=== PATIENT | male | born 1985 | race Caucasian/White ===

== ENCOUNTER 2017-07-28 02:51 | Inpatient (IN) ==
[2017-07-28 04:26] LABS: Basophils % 0.2 %; Eosinophils # 0.1 K/mcL (0.0-0.6); Eosinophils % 0.7 %; Hematocrit 39.4 % (37.5-50.1); Hemoglobin 13.7 g/dL (12.9-16.9); Immature Granulocytes % 0.4 % (0-4); Lymphocytes % 14.3 %; Mean Corpuscular HGB Conc 34.8 g/dL (31.6-35.5); Mean Corpuscular Hemoglobin 29.7 pg (28.0-33.3); Mean Corpuscular Volume 85.3 fL (83.0-100.0); Mean Platelet Volume 11.9 fL (9.4-12.4); Monocytes # 0.9 K/mcL (0.0-1.3); Monocytes % 6.6 %; Platelet Count 174 K/mcL (140-400); Red Blood Count 4.62 M/mcL (4.19-5.50); Red Cell Distribution Width 12.1 % (11.5-14.5); Segmented Neutrophils % 77.8 %
[2017-07-28 04:34] LABS: VBG HCO3 28 mEq/L (21-27); VBG PCO2 44 mmHg (41-51); VBG PH 7.41 pH Units (7.32-7.42); VBG PO2 98 mmHg (25-50)
--- NOTE | 2017-07-28 04:38 | Emergency Department Note ---
Disposition Clinical Impression: Abscess of skin or subcutaneous tissue Qualifiers: Site of cutaneous abscess: extremity Site of cutaneous abscess of extremity: upper extremity Laterality: right Qualified Code(s): L02.413 - Cutaneous abscess of right upper limb Cellulitis Qualifiers: Site of cellulitis: extremity Site of cellulitis of extremity: upper extremity Laterality: right Qualified Code(s): L03.113 - Cellulitis of right upper limb Disposition: Admitted As Inpatient Condition: Good Referrals: NONE,PCP [Primary Care Provider] - Forms: ED Satisfaction Letter Skin/Abscess/FB HPI Chief complaint: ED Skin/Abscess/Foreign Body Stated complaint: "I think I got a staph infection" Time Seen by Provider: 07/28/17 03:40 Source: patient Mode of arrival: private vehicle Limitations: no limitations Nursing Notes Reviewed: Yes Vital Signs Reviewed: Yes HPI Narrative: 31-year-old male history of IVDU with methamphetamines, type 1 diabetes who presents to the ER due to right upper extremity swelling and redness. Patient reports he last injected into his arm yesterday. States today it was warm and swollen. No fevers nausea vomiting or diarrhea at home. He does report they broke out into a sweat. He is noted to be diaphoretic here. Reports his tetanus was one year ago. Does endorse IVDU as of yesterday with meth. No other complaints. Pt Subjective Complaint: abscess/boil Onset (ago): day(s) Tetanus Up to Date: yes Location: RUE Severity: moderate Improves with: none Worsens with: none Context: IVDA Associated symptoms: Reports: chills. Denies: fever, nausea, vomiting Treatments prior to arrival: none Home Medications Medication Instructions Recorded Confirmed Insulin ASPART [Novolog] 15 unit SQ TIDWM 05/08/16 05/20/16 Insulin Glargine [Lantus] 30 unit SQ BID 05/08/16 05/20/16 Previous Rx's Medication Instructions Recorded Acetaminophen [Tylenol] 650 mg PO Q6HR PRN #60 tablet 05/14/16 Gabapentin [Neurontin] 800 mg PO Q8H #90 05/14/16 Clindamycin [Cleocin] 300 mg PO Q6HR 7 Days capsule 05/29/16 Clotrimazole/Betameth Dip CRM 1 appl TP BID #1 tube 05/29/16 [Lotrisone CRM] Escitalopram [Lexapro] 10 mg PO DAILY #30 tablet 05/29/16 Nicotine Patch [Nicoderm] 21 mg TD HS #14 patch.[id number] 05/29/16 OxyCODONE Immed Rel [Roxicodone 5 10 mg PO Q8HR PRN #90 tablet 05/29/16 MG] levoFLOXacin [Levaquin] 500 mg PO DAILY 7 Days tablet 05/29/16 Allergies Allergy/AdvReac Type Severity Reaction Status Date / Time tramadol AdvReac Vomiting Verified 05/20/16 16:51 All systems ED: reviewed and negative except as stated. Constitutional: Reports: chills. Denies: fever Gastrointestinal: Denies: nausea, vomiting, diarrhea Integumentary: Reports: lesions Past Medical History - Past Medical History Attestation: Yes The following information was validated with the patient. Source: patient Medical history: Reports: diabetes, other Surgical history: Reports: non-contributory Psychiatric history: Reports: anxiety - Social History Smoking Status: Current every day smoker Smokeless Tobacco Status: No Alcohol use: Reports: none Drug use: Reports: opiates, marijuana, IV Drug Use Physical Exam - General Limitations: no limitations General appearance: alert, in no apparent distress - Head Head exam: atraumatic - Eye Eye exam: Present: normal appearance - ENT ENT exam: normal exam - Neck Neck exam: Present: normal inspection - Chest Chest inspection: Present: normal inspection, symmetric chest wall rise - Respiratory Respiratory exam: Present: normal lung sounds bilaterally - Cardiovascular Cardiovascular exam: Present: regular rate, normal rhythm, normal heart sounds - Abdominal Exam Abdominal exam: Present: soft, Non-Tender. Absent: tenderness - Extremities Exam Extremities exam: Present: normal inspection, full ROM - Expanded Upper Extremity Exam Shoulder exam: Present: full ROM Arm exam: Present: full ROM, swelling (There is significant swelling noted to the right upper extremity within area of fluctuance just distal to the medial aspect of the right elbow. There is overlying erythema from the wrist up to the medial upper arm.) Elbow exam: Present: full ROM Forearm/Wrist exam: Present: full ROM Hand exam: Present: full ROM - Expanded Lower Extremity Exam Hip/Pelvis exam: Present: normal inspection, full ROM Upper leg exam: Present: normal inspection, full ROM Knee exam: Present: normal inspection, full ROM Lower leg exam: Present: normal inspection, full ROM Ankle exam: Present: normal inspection, full ROM Foot/toe exam: Present: normal inspection, full ROM Neurovascular/Tendon exam: Absent: motor deficit, sensory deficit - Neurological Exam Neurological exam: Present: alert - Psychiatric Psychiatric exam: Present: anxious - Skin Skin exam: Present: warm, dry, intact Course Course Narrative: Patient seen and examined. We will obtain a CT scan of his right arm as well as labs. Vital Signs Temperature 98.1 F 07/28/17 02:53 Pulse Rate 105 07/28/17 02:53 Respiratory Rate 16 07/28/17 02:53 Blood Pressure 170/102 07/28/17 02:53 O2 Sat by Pulse Oximetry 98 07/28/17 02:53 Temperature 98.1 F 07/28/17 02:53 Pulse Rate 105 07/28/17 02:53 Respiratory Rate 16 07/28/17 02:53 Blood Pressure 170/102 07/28/17 02:53 O2 Sat by Pulse Oximetry 98 07/28/17 02:53 Oxygen Delivery Oxygen Delivery Room Air Procedures - Abscess I/D Consent obtained: verbal consent Site: upper extremity Side (if applicable): right Local Anesthetic: lidocaine 1% Amount of Anesthesia Used (mL): 5 Technique: incised with #11 blade Amount of fluid: 40 Packing used?: iodoform Skin/Abscess/Foreign Body - MDM Narrative Medical decision making narrative: 31-year-old male presents to the ER due to abscess and cellulitis to his right upper extremity. History of IV drug use. Injected yesterday with methamphetamine. Reports swelling since yesterday as well as redness. No fevers nausea vomiting or diarrhea. He is noted to be hyperglycemic here and a poorly controlled type I diabetic. CT scan demonstrates a large abscess just distal to his right elbow with overlying cellulitis. Incision and drainage performed in the emergency department. Patient given vancomycin after cultures obtained. Admitted to the hospitalist service. - Lab Data Lab results reviewed: Yes I reviewed the patient's lab results. Result diagrams: 07/28/17 04:16 07/28/17 04:16 Lab Results 07/28/17 07/28/17 07/28/17 Range/Units 03:22 03:23 04:16 WBC 14.2 H (4.3-11.1) K/mcL RBC 4.62 (4.19-5.50) M/mcL Hgb 13.7 (12.9-16.9) g/dL Hct 39.4 (37.5-50.1) % MCV 85.3 (83.0-100.0) fL MCH 29.7 (28.0-33.3) pg MCHC 34.8 (31.6-35.5) g/dL RDW 12.1 (11.5-14.5) % Plt Count 174 (140-400) K/mcL MPV 11.9 (9.4-12.4) fL Immature Gran % 0.4 (0-4) % Seg Neutrophils % 77.8 % Lymphocytes % 14.3 % Monocytes % 6.6 % Eosinophils % 0.7 % Basophils % 0.2 % Neutrophils # 11.0 H (1.6-8.9) K/mcL Lymphocytes # 2.0 (0.6-4.6) K/mcL Monocytes # 0.9 (0.0-1.3) K/mcL Eosinophils # 0.1 (0.0-0.6) K/mcL Basophils # 0.0 (0.0-0.2) K/mcL ESR (0-10) mm/hr VBG pH (7.32-7.42) pH Units VBG pCO2 (41-51) mmHg VBG pO2 (25-50) mmHg VBG HCO3 (21-27) mEq/L Sodium (136-145) mEq/L Potassium (3.5-4.5) mEq/L Chloride (98-109) mEq/L Carbon Dioxide (19-29) mEq/L BUN (8-26) mg/dL Creatinine (0.72-1.25) mg/dL Est GFR ( Amer) (> 60) Est GFR (Non-Af Amer) (> 60) BUN/Creatinine Ratio (6-26) Glucose (70-99) mg/dL POC Glucose 413 H* 410 H* (58-89) Calculated Osmolality (280-300) Lactic Acid (0.5-2.2) mmol/L Calcium (8.6-10.8) mg/dL C-Reactive Protein (Less than 5) mg/L Beta-Hydroxybutyric Acd (0.02-0.27) mmol/L 07/28/17 07/28/17 07/28/17 Range/Units 04:16 04:16 04:16 WBC (4.3-11.1) K/mcL RBC (4.19-5.50) M/mcL Hgb (12.9-16.9) g/dL Hct (37.5-50.1) % MCV (83.0-100.0) fL MCH (28.0-33.3) pg MCHC (31.6-35.5) g/dL RDW (11.5-14.5) % Plt Count (140-400) K/mcL MPV (9.4-12.4) fL Immature Gran % (0-4) % Seg Neutrophils % % Lymphocytes % % Monocytes % % Eosinophils % % Basophils % % Neutrophils # (1.6-8.9) K/mcL Lymphocytes # (0.6-4.6) K/mcL Monocytes # (0.0-1.3) K/mcL Eosinophils # (0.0-0.6) K/mcL Basophils # (0.0-0.2) K/mcL ESR 39 H (0-10) mm/hr VBG pH (7.32-7.42) pH Units VBG pCO2 (41-51) mmHg VBG pO2 (25-50) mmHg VBG HCO3 (21-27) mEq/L Sodium 129 L (136-145) mEq/L Potassium 4.5 (3.5-4.5) mEq/L Chloride 93 L (98-109) mEq/L Carbon Dioxide 25 (19-29) mEq/L BUN 11 (8-26) mg/dL Creatinine 0.77 (0.72-1.25) mg/dL Est GFR ( Amer) > 60 (> 60) Est GFR (Non-Af Amer) > 60 (> 60) BUN/Creatinine Ratio 14 (6-26) Glucose 524 H* (70-99) mg/dL POC Glucose (58-89) Calculated Osmolality 291 (280-300) Lactic Acid 0.9 (0.5-2.2) mmol/L Calcium 8.8 (8.6-10.8) mg/dL C-Reactive Protein 52 H (Less than 5) mg/L Beta-Hydroxybutyric Acd (0.02-0.27) mmol/L 07/28/17 07/28/17 Range/Units 04:16 04:29 WBC (4.3-11.1) K/mcL RBC (4.19-5.50) M/mcL Hgb (12.9-16.9) g/dL Hct (37.5-50.1) % MCV (83.0-100.0) fL MCH (28.0-33.3) pg MCHC (31.6-35.5) g/dL RDW (11.5-14.5) % Plt Count (140-400) K/mcL MPV (9.4-12.4) fL Immature Gran % (0-4) % Seg Neutrophils % % Lymphocytes % % Monocytes % % Eosinophils % % Basophils % % Neutrophils # (1.6-8.9) K/mcL Lymphocytes # (0.6-4.6) K/mcL Monocytes # (0.0-1.3) K/mcL Eosinophils # (0.0-0.6) K/mcL Basophils # (0.0-0.2) K/mcL ESR (0-10) mm/hr VBG pH 7.41 (7.32-7.42) pH Units VBG pCO2 44 (41-51) mmHg VBG pO2 98 H (25-50) mmHg VBG HCO3 28 H (21-27) mEq/L Sodium (136-145) mEq/L Potassium (3.5-4.5) mEq/L Chloride (98-109) mEq/L Carbon Dioxide (19-29) mEq/L BUN (8-26) mg/dL Creatinine (0.72-1.25) mg/dL Est GFR ( Amer) (> 60) Est GFR (Non-Af Amer) (> 60) BUN/Creatinine Ratio (6-26) Glucose (70-99) mg/dL POC Glucose (58-89) Calculated Osmolality (280-300) Lactic Acid (0.5-2.2) mmol/L Calcium (8.6-10.8) mg/dL C-Reactive Protein (Less than 5) mg/L Beta-Hydroxybutyric Acd 0.49 H (0.02-0.27) mmol/L - Radiology Data Radiology results reviewed: Yes I reviewed the patient's radiology results. Upper Extremity CT 07/28/17 03:53 IMPRESSION: Soft tissue edema and cellulitis. 5.7 x 3.9 x 3.0 cm fluid collection anteromedial aspect of the elbow without definite extension into the muscle. D/ / Marisela Park MD / Marisela Park MD Interpreting Provider: Marisela Pakr MD Critical Care Time Critical Care Time: Yes Total Critical Care Time: 35 Attestation: Critical care performed: Time is exclusive of separately billable procedures. Time includes: direct patient care, patient reassessment, coordination of patient care, interpretation of data (laboratory data, radiology data, and respiratory data), review of patient's medical records, medical consultation and documentation of patient care. Procedures included in critical care time: Procedures excluded from critical care time: Incision and drainage S.B.A.R. - S.B.A.R. Situation: Demographics, MOA Background: Presenting Complaint, Relevant PMH, Meds, & Allergies Assessment: Course and respsone to treatment, Exam Concerns, Patient/Family Expectation, Pertinant Lab Results Recommendation: Barrier(s) to disposition, Recommendation based on pending studies, treatments, or consults S.B.A.RJayjay Report Given to: Dr. Tamar Reynolds Repor Time: 06:39 Attestation Statement - Attestation Attestation: I, Greg Oshea MD, personally evaluated this patient and discussed their management with the resident physician. I reviewed the resident's note and agree with the documented findings, medical decision making, and plan of care. 31-year-old male presents to the emergency department with a complaint of infection in the right arm which started one day prior to arrival. Patient admits to IV drug use and injecting in the right arm yesterday. Complains of pain and swelling from the mid upper arm down to the wrist. There is a localized abscess to the anterior medial aspect of the proximal left forearm. Patient has not noticed any fever but after he arrived in the emergency department tonight he states he broke out in a sweat and now feels hot. Patient is diabetic. On examination patient is a well-developed well-nourished well-appearing male in no acute distress. He is alert and oriented 3. There is no cyanosis. Patient is diaphoretic. Breath sounds are clear and equal bilaterally. Heart regular with a moderate tachycardia. Abdomen soft with normal bowel sounds. There is marked swelling of the right arm starting in the mid right upper arm and extending down to the wrist. Moderate size abscess to the anterior medial aspect of the proximal forearm. Neurovascular function intact distally. Full range of motion of the shoulder elbow and wrist. Labs reviewed. WBC 14.2. Glucose 524. ESR and CRP elevated. CT of the right arm with contrast was obtained and showed cellulitis with a subcutaneous abscess to the anterior medial aspect of the proximal forearm. No involvement of the joint or muscle. Abscess I&D by Dr. Duggan under my direct supervision. IV antibiotics initiated. The hospitalist, Dr. Boyle, was consulted and accepted admission of the patient.
[2017-07-28 04:46] LABS: BUN/Creatinine Ratio 14 (6-26); Blood Urea Nitrogen 11 mg/dL (8-26); C-Reactive Protein 52 mg/L (Less than 5); Calcium 8.8 mg/dL (8.6-10.8); Carbon Dioxide 25 mEq/L (19-29); Chloride 93 mEq/L (98-109); Osmolality,Calculated 291 (280-300); Potassium 4.5 mEq/L (3.5-4.5); Sodium 129 mEq/L (136-145); eGFR For African Americans > 60 (> 60); eGFR For Non-African Americans > 60 (> 60)
[2017-07-28 04:52] LABS: Glucose 524 mg/dL (70-99)
[2017-07-28] MEDS ORDERED: Vancomycin 1,500 MG in D5% in Water 250 ML IVPB ONE (06:05)
[2017-07-28] MEDS ORDERED: Lidocaine 1% 20 ML MDV ID ONE (06:05)
[2017-07-28] MEDS ORDERED: Insulin Human Regular 10 UNIT in 0.9 % Sodium Chloride 10 ML IV ONE (06:27)
[2017-07-28] MEDS ORDERED: Ondansetron ODT 4 MG TAB.RAPDIS SL PRN (07:59)
[2017-07-28] MEDS ORDERED: Naloxone 0.4 MG/ML INJ IVP PRN (07:59)
[2017-07-28] MEDS ORDERED: *HR* Dextrose 50 % in Water (Syg) 50 ML SYRINGE IVP PRN ×2 (08:06→09:48)
[2017-07-28] MEDS ORDERED: 0.9 % Sodium Chloride 1,000 ML IVC ONE (08:09)
[2017-07-28] MEDS ORDERED: Insulin Human Regular 100 UNIT in 0.9 % Sodium Chloride 100 ML IVC SCH (08:15)
[2017-07-28] MEDS ORDERED: ALPRAZolam 0.25 MG TABLET PO ONE (09:17)
[2017-07-28] MEDS ORDERED: ALPRAZolam 0.5 MG TABLET PO ONE (09:30)
--- NOTE | 2017-07-28 09:44 | Internal Med History&Physical ---
<Nancy Cohen - Last Filed: 07/28/17 09:52> Date of Encounter: 07/28/17 Time of Encounter: 07:30 Assessment and Plan (1) Cellulitis Status: Acute Mr. Beckman is a 31 year old male 07/28/2017 with complaints of right arm pain and swelling. He was found to have a right arm abscess and elevated blood sugar. He was admitted for further workup and treatment. 1. Cellulitis with abscess: To right upper extremity. Secondary to IV drug use. Right upper extremity CT with fluid collection to right elbow without extension into muscle. WBC 14K, lactic acid normal. ESR 39, CRP 52. S/p I&D in ER. Continue IV Vanco, Zosyn. Cultures pending, narrow ATB as culture finalizes. Infectious disease consulted. Local wound care 2. Sepsis: HR 106, WBC 14K. secondary to right arm abscess. Received IV ATB and fluids in the ED. Hemodynamically stable. Plan as noted above. Continue IV fluids, IV ATB. 3. Type 1 diabetes: per hx. Blood sugar greater than 500 on arrival. AG 11, beta hydroxybutyrate positive. Likely secondary to medication noncompliance. Received 10 units subcutaneous in the ER improvement in blood sugar. old on insulin drip has no elevated anion gap. Continue home long-acting insulin. SSI. Monitor blood sugar and titrate PRN 4. Pseudohyponatremia: Na 129; in the setting of hyperglycemia. Corrected sodium 139. Neurologically intact. Expect sodium will normalize as glucose improves. Monitor repeat BMP 5. Benzo withdrawal: Possible. Patient reports taking Xanax on a daily basis. Last ingested day of presentation. [place] reviewed 07/28/17 and he does not have active Rx for Xanax. He is at risk for seizures if he has been taking Xanax and it's abruptly stopped. Received one-time dose Xanax in ER. UDS pending 6. IV drug abuse: History of polysubstance abuse; currently reports using IV methamphetamines and Xanax. Appears intoxicated/impaired on exam. Last injected methamphetamine day of presentation. He was hypertensive and tachycardic on arrival. BP and heart rate now improved. Monitor for agitation/ aggression. Symptomatic care at this time. UDS pending 7. DVT prophylaxis: Heparin Qualifiers: Site of cellulitis: extremity Site of cellulitis of extremity: upper extremity Laterality: right Qualified Code(s): L03.113 - Cellulitis of right upper limb (2) IVDU (intravenous drug user) Status: Chronic (3) Type 1 diabetes mellitus maturity onset Status: Chronic Internal Medicine - H&P: HPI Chief complaint: left arm abscess Admitted From: Home History of present illness: Mr. Beckman is a 31 year old male 07/28/2017 with complaints of right arm pain and swelling. He was found to have a left arm abscess abscess and in DKA. He was admitted for further workup and treatment. Information obtained from chart review and patient report although patient appears to be intoxicated and does not provide much information. He was recently [facility] from [facility]. Says he takes Xanax at home was not able to get them therefore he started using methamphetamines. Says he shot up and left arm yesterday and noticed pain and redness and swelling afterwards. Appears intoxicated all my exam. Drowsy and lethargic. Past Med Surg Social Fam HX - Past Medical History Medical history: diabetes, other Psychiatric history: anxiety - Past Surgical History Surgical History: non-contributory - Social History Smoking Status: Current every day smoker Smokeless Tobacco Status: No Alcohol use: none Drug use: opiates, marijuana, IV Drug Use - Family History Grandfather Living Status: Hx Family Endocrine Disorder: Yes (DM) Internal Medicine - H&P: Meds Insulin ASPART [Novolog] 10 - 15 unit SQ TID 05/08/16 [History] Insulin Glargine [Lantus] 25 unit SQ BID 05/08/16 [History] Pregabalin [Lyrica] 200 mg PO BID 07/28/17 [History] 3 Allergy/AdvReac Type Severity Reaction Status Date / Time tramadol AdvReac Vomiting Verified 07/28/17 06:53 All Systems PM: A 10-system review of systems was performed and is negative for pertinent findings except as documented above in the HPI. - Constitutional Constitutional: lethargy, no chills, no fever(s), no night sweats - EENT Eyes: no change in vision, no discharge, no pain, no photophobia Ears: no ear discharge, no ear pain, no tinnitus Nose, mouth and throat: no dysphagia, no nasal discharge, no neck pain, no sore throat - Cardiovascular Cardiovascular ROS IM: no chest pain, no diaphoresis, no dyspnea, no lightheadedness, no palpitations, no syncope - Respiratory Respiratory: no cough, no dyspnea, no wheezing, no excessive phlegm production - Gastrointestinal Gastrointestinal: no abdominal pain, no diarrhea, no hematemesis, no hematochezia, no melena, no nausea, no vomiting - Musculoskeletal Musculoskeletal ROS IM: no numbness, no tingling - Integumentary Integumentary IM: new lesions, sores, no rash, no unusual bruising - Neurological Neurological ROS: no confusion, no convulsions, no focal weakness, no numbness, no tingling, no tremor(s) - Hematologic/Lymphatic Hematologic/Lymphatic: no easy bruising - Constitutional Vitals: Temp Pulse Resp BP Pulse Ox 98.1 F 106 14 133/79 99 07/28/17 02:53 07/28/17 07:47 07/28/17 07:47 07/28/17 07:47 07/28/17 07:47 General appearance: Present: disheveled, A&O X 3 - Head Head exam: Present: atraumatic, normocephalic - Eye Eye exam: Present: PERRL, conjuntiva pink, sclera anicteric Pupils: Present: PERRL - Neck Neck exam general surgery: Present: supple, trachea midline. Absent: lymphadenopathy - Respiratory Respiratory exam: Present: CTAB. Absent: accessory muscle use, rales, rhonchi, wheezes - Cardiovascular Cardiovascular exam: Present: RRR, +S1, +S2. Absent: diastolic murmur, gallop, rubs, systolic murmur - GI/Abdominal GI/Abdominal exam: Present: normal bowel sounds, soft, no peritoneal signs. Absent: distended, tenderness - Extremities Exam Extremities exam: Present: joint swelling, pedal edema, warm, radial pulses palpable and symmetrical. Absent: calf tenderness, cyanotic - Neurological Exam Neurological exam: Present: CN II-XII intact, oriented X3, no focal deficits. Absent: pronater drift, facial droop, speech deficit Additional comments: drowsy but oriented X 4 - Skin Skin exam: Present: dry Additional comments: Including neck back chest and arms and face. right arm abscess status post incision and drainage in the ER. Area wrapped not assessed. Internal Med - H&P Results - Labs CBC & Chem 7: 07/28/17 04:16 07/28/17 04:16 <Simon Latif P - Last Filed: 08/03/17 14:09> Date of Encounter: 08/03/17 Internal Medicine - H&P: HPI History of present illness: Mr. Beckman is a 31 year old male All Systems PM: A 10-system review of systems was performed and is negative for pertinent findings except as documented above in the HPI. - Constitutional Vitals: Temp Pulse Resp BP Pulse Ox 97.5 F L 98 19 157/81 100 07/30/17 14:57 07/30/17 14:57 07/30/17 14:57 07/30/17 14:57 07/30/17 14:57 Internal Med - H&P Results - Labs CBC & Chem 7: 07/29/17 14:15 07/29/17 14:15 - Attending Attestation I examined this patient and my medical decision-making was reviewed with the Resident Physician/ADMINISTRATIVE EXECUTIVE. I agree with the documented findings, disposition and treatment plan as described except to the extent set forth below.
[2017-07-28] MEDS ORDERED: D5% in 0.45% NACL 1,000 ML IVC PRN (09:48)
[2017-07-28] MEDS ORDERED: Insulin Regular, Human 100 UNIT/ML IV PRN (09:48)
[2017-07-28] MEDS ORDERED: Dextrose Gel 15 GM PO PRN (10:24)
[2017-07-28] MEDS ORDERED: NON-FORMULARY MEDICATION 1 EACH EACH (Insulin Glargine [Lantus] 25 UNIT) SQ SCH (10:30)
[2017-07-28 11:26] LABS: Hemoglobin A1C 11.9 %
[2017-07-28] MEDS: *HR* Heparin 5,000 UNIT/ML VIAL SQ SCH ×3 (12:00→23:08)
[2017-07-28] MEDS: Insulin LISPRO 300 UNITS/3 ML VIAL SQ SCH ×3 (14:37→20:37)
[2017-07-28] MEDS: Insulin DETEMIR 100 UNIT/ML X5UNITS SQ SCH ×2 (14:37→23:09)
[2017-07-28] MEDS: Piperacillin/Tazobactam 3.375 GM in D5% in Water 50 ML IVPB SCH ×3 (14:38→23:20)
[2017-07-28] MEDS: 0.9 % Sodium Chloride 1,000 ML IVC SCH (15:35)
[2017-07-28] MEDS ORDERED: ALPRAZolam 1 MG TABLET PO ONE (20:03)
[2017-07-28] MEDS: Pregabalin 50 MG CAPSULE PO SCH (20:31)
[2017-07-29] MEDS: 0.9 % Sodium Chloride 1,000 ML IVC SCH ×4 (06:21→23:23)
[2017-07-29] MEDS: Piperacillin/Tazobactam 3.375 GM in D5% in Water 50 ML IVPB SCH ×4 (06:23→23:25)
[2017-07-29] MEDS: Insulin LISPRO 300 UNITS/3 ML VIAL SQ SCH ×4 (07:51→20:31)
[2017-07-29] MEDS: Pregabalin 50 MG CAPSULE PO SCH ×2 (09:37→20:29)
[2017-07-29] MEDS: Insulin DETEMIR 100 UNIT/ML X5UNITS SQ SCH ×2 (09:38→20:30)
[2017-07-29] MEDS: *HR* Heparin 5,000 UNIT/ML VIAL SQ SCH ×3 (09:38→23:23)
[2017-07-29] MEDS ORDERED: ALPRAZolam 1 MG TABLET PO ONE ×2 (10:19→15:36)
--- NOTE | 2017-07-29 11:27 | General Surgery Consult Note ---
Date of Encounter: 07/29/17 Time of Encounter: 11:15 Assessment and Plan (1) Abscess of right upper arm and forearm Current Visit: Yes Status: Acute Plan for I&D for right forearm today IV antibiotics Vancomycina and Zosyn Cultures- gram stain, aerobic culture, aerobic culture Supportive care Daily wound care F/U with surgery office in 1 week for wound check (2) Polysubstance dependence including opioid type drug, continuous use Current Visit: No Status: Chronic History of Present Illness Consult date: 07/29/17 Reason for consult: other (right forearm abscess) Requesting physician: Nancy Cohen History of present illness: Mr. Beckman is a 31-year-old male who presented to the emergency department with complaints of right arm pain and swelling for 1 day. He does admit to injection illicit drugs and states that he used methamphetamines/heroin as recently as 07/27/17. He admits to fevers and chills during this admission but not prior to coming to the hospital. He states that he has limited range of motion of his right upper extremity due to swelling and pain. He states that he did have an incision and drainage of the area completed on admission in the emergency department but that the area was not packed and has now closed. He states that the pain is no better than when he first presented to the emergency department. He has had multiple areas similar to this in the past. He states that he either has them drained in the emergency department where he drained some himself at home. He has had a CAT scan completed which shows evidence of a persistent right upper extremity abscess and cellulitis. We have been asked to see and evaluate the patient for recommendations. Past Med Surg Social Fam HX - Past Medical History Source: patient, old records reviewed Medical history: diabetes, liver disease (Hepatitis C), other (Reduced EF 45-50 % on TTE) Psychiatric history: anxiety - Past Surgical History Surgical History: orthopedic, other (right knee, left foot), other (surgery on nose) - Social History Smoking Status: Current every day smoker Packs per day: 1-2 Smokeless Tobacco Status: No Alcohol use: none Drug use: opiates, marijuana, methamphetamine, IV Drug Use Current living situation: Home - Independent Activity Level: Independent ambulation - Family History Grandfather History Unknown: Yes Adopted: No Living Status: Hx Family Endocrine Disorder: Yes (DM) Medications and Allergies Insulin ASPART [Novolog] 10 - 15 unit SQ TID 05/08/16 [History] Insulin Glargine [Lantus] 25 unit SQ BID 05/08/16 [History] Pregabalin [Lyrica] 200 mg PO BID 07/28/17 [History] 3 Allergy/AdvReac Type Severity Reaction Status Date / Time tramadol AdvReac Vomiting Verified 07/28/17 06:53 Review of Systems All systems PM: A 10-system review of systems was performed and is negative for pertinent findings except as documented above in the HPI. General Surgery Exam Initial Vital Signs Temp Pulse Resp BP Pulse Ox 98.1 F 105 16 170/102 98 07/28/17 02:53 07/28/17 02:53 07/28/17 02:53 07/28/17 02:53 07/28/17 02:53 - General physical appearance well developed, well nourished, no distress - Eyes normal ocular movement - ENT normal mucosa, atraumatic, normocephalic - Neck trachea midline - Respiratory normal expansion, normal respiratory effort, clear to auscultation - Cardiovascular Cardiovascular exam: Present: RRR - Abdomen Abdomen general surgery: Present: bowel sounds present, soft, non tender - Incision Incision: Present: swollen, clean and dry, erythema, indurated, approximated - Integumentary Integumentary general surgery: Present: warm and dry, other (Right upper extremity with previous I&D site which is now approximated. Surrounding erythema and induration noted with positive fluctuance. The area is moderately tender to palpation.) - Neurologic Present: CN 2-12 grossly intact - Musculoskeletal Present: normal gait, normal posture - Psychiatric Psychiatric general surgery: Present: appropriate, oriented to person, oriented to place, oriented to time, speech is normal, memory intact Exam Initial Vital Signs Temp Pulse Resp BP Pulse Ox 98.1 F 105 16 170/102 98 07/28/17 02:53 07/28/17 02:53 07/28/17 02:53 07/28/17 02:53 07/28/17 02:53 Results - Labs 07/28/17 04:16 07/28/17 04:16 Abnormal lab results WBC 14.2 K/mcL (4.3-11.1) H 07/28/17 04:16 Neutrophils # 11.0 K/mcL (1.6-8.9) H 07/28/17 04:16 ESR 39 mm/hr (0-10) H 07/28/17 04:16 VBG pO2 98 mmHg (25-50) H 07/28/17 04:29 VBG HCO3 28 mEq/L (21-27) H 07/28/17 04:29 Sodium 129 mEq/L (136-145) L 07/28/17 04:16 Chloride 93 mEq/L (98-109) L 07/28/17 04:16 Glucose 524 mg/dL (70-99) H* 07/28/17 04:16 POC Glucose 141 (58-89) H 07/28/17 19:29 Hemoglobin A1c 11.9 % (-5.6) H 07/28/17 10:11 C-Reactive Protein 52 mg/L (Less than 5) H 07/28/17 04:16 Beta-Hydroxybutyric Acd 0.49 mmol/L (0.02-0.27) H 07/28/17 04:16 Diabetes panel 07/28/17 Range/Units 10:11 Hemoglobin A1c 11.9 H ( - 5.6) % All other labs normal. - Imaging Additional studies: Upper Extremity CT 07/28/17 03:53 IMPRESSION: Soft tissue edema and cellulitis. 5.7 x 3.9 x 3.0 cm fluid collection anteromedial aspect of the elbow without definite extension into the muscle. D/ / Marisela Park MD / Marisela Park MD Interpreting Provider: Marisela Park MD Consult Discharge Plan - Plan Additional Instructions: Wound care- Cleanse right forearm with soap and water, packed with 1/4 inch iodoform gauze, cover with 4 x 4 gauze, wrapped with Kerlix and tape to secure daily May shower Referrals: NONE,PCP [Primary Care Provider] - Beverly Perez, MEDICAL TRANSCRIPTION [Advanced Practice Nurse] - 08/06/17 9:45 am (surgery follow-up; wound check)
[2017-07-29] MEDS ORDERED: Lidocaine 1% 20 ML MDV INFILT ONE (12:30)
--- NOTE | 2017-07-29 13:09 | Infectious Disease Consult ---
Date of Encounter: 07/29/17 Time of Encounter: 13:09 Assessment and Plan (1) Sepsis Status: Acute Assessment and plan: The patient had two SIRS criteria on admission. Likely secondary to RUE abscess and cellulitis. Improved. Tachycardia has resolved. Patient refused labs this morning, but has agreed to have them drawn this afternoon. Blood cultures drawn 07/28/17 are pending x 2 sets. Qualifiers: Sepsis type: sepsis due to unspecified organism Qualified Code(s): A41.9 - Sepsis, unspecified organism (2) Abscess of right upper arm and forearm Status: Acute Assessment and plan: Location: Anteromedial aspect of the right elbow. Causative organism unclear. The patient's uncontrolled DM puts him at risk for gram negative infections and drug use puts him at risk for gram positive infections. Likely secondary to recent IV drug use. CT scan of the RUE showed soft tissue edema and cellulitis with an abscess at the anteromedial aspect of the elbow without definitive extension into the muscle. ESR 39, CRP 52. Status post bedside I & D 07/28/17 in the ER. Cultures are pending. Patient reports interval worsening since admission. Marked erythema, swelling, and fluctuance noted on exam. Consider repeating CT scan to evaluate. Consider general surgery evaluation for formal I & D. Get labs now: CBC, BMP, ESR, CRP, CK level. The patient refused labs this morning but is agreeable to an EPIV at this time to assist with blood draws. Continue zosyn 3.375 grams IV Q8H. Start Vancomycin IV. Pharmacy to dose. Goal trough ~15. Duration of treatment depends on the clinical picture. Monitor renal function and for drug toxicity and dose-adjust antibiotics. (3) Abscess of skin or subcutaneous tissue Status: Acute Assessment and plan: Locations: Left shoulder, right face, bilateral extremities. Await general surgery evaluation for possible I & D of the abscess on the right face/nose. Continue antibiotics as above. Qualifiers: Site of cutaneous abscess: other site Qualified Code(s): L02.818 - Cutaneous abscess of other sites (4) Anxiety Status: Chronic Assessment and plan: Reports he has been on Xanax for several years, but has not been able to find a doctor to prescribe it for him and he has been self-medicating with methamphetamine. Consider psych consult. Management per the primary team. (5) Diabetes mellitus Status: Chronic Assessment and plan: Uncontrolled. HgbA1C 11.3%. Recommend aggressive glucose monitoring and control to promote wound healing and prevent re-infection. Management per the primary team. Qualifiers: Diabetes mellitus type: type 1 Diabetes mellitus complication status: with unspecified complications Qualified Code(s): E10.8 - Type 1 diabetes mellitus with unspecified complications (6) IVDU (intravenous drug user) Status: Chronic Assessment and plan: Reports using IV methamphetamine. Known Hep C positive. Check HIV status. (7) Polysubstance dependence including opioid type drug, continuous use Status: Chronic (8) Hepatitis C Status: Acute Qualifiers: Viral hepatitis chronicity: chronic Hepatic coma status: without hepatic coma Qualified Code(s): B18.2 - Chronic viral hepatitis C Infectious Disease HPI - Data of Consult Patient: new to practice Consult date: 07/29/17 Requesting Physician: Miguel Guzmán MD Primary Care Provider: PCP NONE - Consult Narrative Reason for consult: Right arm abscess History of present illness: Mr. Beckman is a 31 year old male with past medical history of diabetes and anxiety. The patient was admitted to the hospital July 28 for right upper extremity abscess. We are consulted June 28 for antibiotic recommendations regarding right upper extremity abscess. Briefly, the patient is a 31-year-old male with past medical history as stated above. The patient states that he recently started doing IV methamphetamines and shot up IV meth about 2 days prior to the onset of his symptoms. He states he noticed increasing redness, swelling, and an abscess to the inner part of his right forearm and elbow. Upon presentation to the ER, patient was afebrile but he was tachycardic and hypertensive. He also neutrophilic leukocytosis. Laboratory studies revealed a normal serum creatinine and lactic acid. ESR is elevated at 39 with a CRP of 52. The patient's hemoglobin A1c was also elevated at 11.9. The patient underwent a bedside I&D and cultures were obtained and are pending. Her right upper extremity CT scan that showed soft tissue edema and cellulitis as well as abscess at the anterior medial aspect of the elbow without extension into the muscle. Blood cultures were obtained 2 sets and are pending. Currently, the patient is on IV Zosyn. He was given a dose of vancomycin in the ER. We've been asked to evaluate and make further recommendations. During my exam today, the patient endorses a history as above. He states that he had been on IV drugs for a long time until about 5 months ago when he went to [facility] and got clean. He states he's been watching 3 months in [facility] and then was on beta trough for 2 months, but recently had difficulty getting access to his anxiety medication and was self medicating with methamphetamines. Prior to arrival, the patient states that he was having fevers and sweating, but no chills or rigors. He denies any headache or neck pain. He does report complaints of a painful lesion to the right side of his nose just under his right eye. He denies any congestion, earache, or sore throat. He denies any chest pain, shortness of breath, cough. He denies any nausea, vomiting, diarrhea , constipation. He denies abdominal or appetite changes. He denies any urinary complaints and reports multiple ulcers to multiple parts of his body including his face, back, and extremities. He does report a history of treatment ashley hepatitis C. He states that he is a diabetic and does not share needles because he has access to as many needles that he wants. He denies any history of HIV. He does smoke a pack of cigarettes per day. He denies alcohol use. CC: Miguel Guzmán MD Past Med Surg Social Fam HX - Past Medical History Attestation: Yes The following information was validated with the patient. Source: patient, nursing notes reviewed Medical history: diabetes, liver disease (Hepatitis C), other (Reduced EF 45-50 % on TTE) Psychiatric history: anxiety - Past Surgical History Surgical History: other (right foot surgery) - Social History Smoking Status: Current every day smoker Packs per day: 1-2 Smokeless Tobacco Status: No Alcohol use: none Drug use: opiates, marijuana, IV Drug Use Occupational status: unemployed Current living situation: Home - Independent Activity Level: Independent ambulation Recent Out of Country Travel Within the Last 8 Weeks: No Exposure or Possible Exposure to Illness During Travel: No - Family History Grandfather History Unknown: Yes Adopted: No Living Status: Hx Family Endocrine Disorder: Yes (DM) Infectious Disease-CN:Meds Insulin ASPART [Novolog] 10 - 15 unit SQ TID 05/08/16 [History] Insulin Glargine [Lantus] 25 unit SQ BID 05/08/16 [History] Pregabalin [Lyrica] 200 mg PO BID 07/28/17 [History] 3 Allergy/AdvReac Type Severity Reaction Status Date / Time tramadol AdvReac Vomiting Verified 07/28/17 06:53 All systems: reviewed and no additional remarkable complaints except as stated Exam - Constitutional Vitals: Temp Pulse Resp BP Pulse Ox 97.6 F 83 19 148/87 99 07/29/17 12:05 07/29/17 12:05 07/29/17 12:05 07/29/17 12:05 07/29/17 12:05 General appearance: average body habitus, cooperative, no acute distress - Head Head exam: Present: atraumatic, normal inspection, normocephalic - Eye Eye exam: Present: EOMI, normal appearance, PERRL Pupils: Present: normal accommodation - ENT ENT exam: Present: mucous membranes moist - Neck Neck exam: Present: normal inspection - Respiratory Respiratory exam: Present: CTAB. Absent: rales, respiratory distress, rhonchi, wheezes - Cardiovascular Cardiovascular exam: Present: RRR, +S1, +S2 - GI/Abdominal GI/Abdominal exam: Present: normal bowel sounds, soft. Absent: distended, tenderness - Extremities Exam Extremities exam: Present: joint swelling (right elbow), tenderness (right upper extremity.). Absent: pedal edema - Expanded Upper Extremity Exam Upper Arm exam: Present: erythema, swelling, tenderness Elbow exam: Present: erythema, pain w/ pronation/supination, swelling, tenderness. Absent: full ROM Forearm wrist exam: Present: erythema, swelling, tenderness - Back Exam Back exam: Present: normal inspection. Absent: paraspinal tenderness, vertebral tenderness - Neurological Exam Neurological exam: Present: alert, oriented X3, no focal deficits - Psychiatric Psychiatric exam: Present: normal affect, normal mood - Skin Skin exam: Present: dry, intact, normal color, warm Infectious Disease CN: Results - Labs CBC & Chem 7: 07/29/17 14:15 07/29/17 14:15 Consult Discharge Plan - Plan Additional Instructions: Wound care- Cleanse right forearm with soap and water, packed with 1/4 inch iodoform gauze, cover with 4 x 4 gauze, wrapped with Kerlix and tape to secure daily May shower Referrals: Beverly Perez WAD LUBRICATOR [Advanced Practice Nurse] - 08/06/17 9:45 am (surgery follow-up; wound check) NONE,PCP [Primary Care Provider] -
--- NOTE | 2017-07-29 13:25 | Internal Med Progress Note ---
Date of Encounter: 07/29/17 Time of Encounter: 13:19 - Assessment and plan (1) Cellulitis Current Visit: Yes Status: Acute Assessment and plan: Mr. Beckman is a 31 year old male 07/28/2017 with complaints of right arm pain and swelling. He was found to have a right arm abscess and elevated blood sugar. He was admitted for further workup and treatment. 1. Cellulitis with abscess: To right upper extremity. Secondary to IV drug use. Right upper extremity CT with fluid collection to right elbow without extension into muscle. WBC 14K, lactic acid normal. ESR 39, CRP 52. S/p I&D in ER. Continue IV Vanco, Zosyn. Cultures pending, narrow ATB as culture finalizes. Infectious disease consulted. Abscess appears to be re-accumulating on 07/29. General Surgery consulted 2. Sepsis: HR 106, WBC 14K. secondary to right arm abscess. Received IV ATB and fluids in the ED. Hemodynamically stable. Plan as noted above. Continue IV fluids, IV ATB. 3. Type 1 diabetes: per hx. Blood sugar greater than 500 on arrival. AG 11, beta hydroxybutyrate positive. Likely secondary to medication noncompliance. Received 10 units subcutaneous in the ER improvement in blood sugar. No insulin drip has no elevated anion gap. Continue home long-acting insulin. SSI. Monitor blood sugar and titrate PRN 4. Pseudohyponatremia: Na 129; in the setting of hyperglycemia. Corrected sodium 139. Neurologically intact. Expect sodium will normalize as glucose improves. Monitor repeat BMP 5. Benzo withdrawal: Possible. Patient reports taking Xanax on a daily basis. Last ingested day of presentation. [place] reviewed 07/28/17 and he does not have active Rx for Xanax. He is at risk for seizures if he has been taking Xanax and it's abruptly stopped. Received one-time dose Xanax in ER. UDS pending. Psych consulted 6. IV drug abuse: History of polysubstance abuse; currently reports using IV methamphetamines and Xanax. Appears intoxicated/impaired on exam. Last injected methamphetamine day of presentation. He was hypertensive and tachycardic on arrival. BP and heart rate now improved. Monitor for agitation/ aggression. Symptomatic care at this time. UDS pending 7. DVT prophylaxis: Heparin Qualifiers: Qualified Code(s): L03.113 - Cellulitis of right upper limb (2) IVDU (intravenous drug user) Current Visit: No Status: Chronic (3) Type 1 diabetes mellitus maturity onset Current Visit: No Status: Chronic - Subjective Interval history: Seen and examined at bedside. Patient is aggressive and agitated on exam. He is requesting his Xanax, as he will leaving it off the street decanted Xanax and patient. I spoke to him at length regarding need to stay for IV ATB and repeat I&D of right arm. Was able to de-escalate at the time. He is agreeable to stay for now. Says he has been taking 6-8 mg Xanax over the past year illegally. - Constitutional Vitals: Temp Pulse Resp BP Pulse Ox 97.6 F 83 19 148/87 99 07/29/17 12:05 07/29/17 12:05 07/29/17 12:05 07/29/17 12:05 07/29/17 12:05 General appearance: Present: disheveled, A&O X 3 - Head Head exam: Present: atraumatic, normocephalic - Eye Eye exam: Present: PERRL, conjuntiva pink, sclera anicteric Pupils: Present: PERRL - Neck Neck exam general surgery: Present: supple, trachea midline. Absent: lymphadenopathy - Respiratory Respiratory exam: Present: CTAB. Absent: accessory muscle use, rales, rhonchi, wheezes - Cardiovascular Cardiovascular exam: Present: RRR, +S1, +S2. Absent: diastolic murmur, gallop, rubs, systolic murmur - GI/Abdominal GI/Abdominal exam: Present: normal bowel sounds, soft, no peritoneal signs. Absent: distended, tenderness - Extremities Exam Extremities exam: Present: warm, radial pulses palpable and symmetrical. Absent : calf tenderness, cyanotic, pedal edema - Incison Comments: Right arm abscess appears to be reaccumulating. Area with warmth, redness and tenderness - Neurological Exam Neurological exam: Present: CN II-XII intact, oriented X3, no focal deficits. Absent: pronater drift, facial droop, speech deficit - Skin Skin exam: Present: dry, intact Internal Medicine: Result - Labs CBC & Chem 7: 07/28/17 04:16 11/07/17 04:16 Consult Discharge Plan - Plan Referrals: NONE,PCP [Primary Care Provider] -
[2017-07-29] MEDS ORDERED: Vancomycin 1,500 MG in D5% in Water 250 ML IVPB SCH (14:00)
[2017-07-29] MEDS ORDERED: *HR* HYDROmorphone (PF) 1 MG/ML SYRINGE IVP ONE (14:17)
[2017-07-29] MEDS: Vancomycin 1,500 MG in D5% in Water 250 ML IVPB SCH (14:47)
--- NOTE | 2017-07-29 14:49 | General Surgery Procedure Note ---
Date of procedure: 07/29/17 Pre-op diagnosis: Right forearm abscess Post-op diagnosis: same Procedure: After informed consent was obtained and timeout completed, the patient's right forearm was prepped and draped. The area was localized with 5 ML's of 1% lidocaine. After achieving appropriate localization, a 3 cm incision was made over the most fluctuaant area using a size 11 blade. There was immediate return of purulent drainage. The cavity was further opened and decompressed using hemostats. Gram stain, aerobic, and anaerobic cultures were obtained. The cavity was flushed using 20 MLs of saline and then packed with 1/4 inch iodoform gauze and covered with a dry dressing. Complications: none Anesthesia: local Surgeon: Beverly Perez Estimated blood loss (cc): 2 Pathology: other (Gram stain, aerobic culture, anaerobic culture) Condition: stable Disposition: no change
[2017-07-29 16:26] LABS: Basophils % 0.5 %; Eosinophils # 0.1 K/mcL (0.0-0.6); Eosinophils % 2.3 %; Hematocrit 35.2 % (37.5-50.1); Hemoglobin 12.2 g/dL (12.9-16.9); Immature Granulocytes % 0.3 % (0-4); Lymphocytes # 1.9 K/mcL (0.6-4.6); Lymphocytes % 31.8 %; Mean Corpuscular HGB Conc 34.7 g/dL (31.6-35.5); Mean Corpuscular Hemoglobin 29.5 pg (28.0-33.3); Mean Platelet Volume 11.7 fL (9.4-12.4); Monocytes # 0.6 K/mcL (0.0-1.3); Monocytes % 9.1 %; Neutrophils # 3.4 K/mcL (1.6-8.9); Platelet Count 164 K/mcL (140-400); Red Blood Count 4.14 M/mcL (4.19-5.50); Red Cell Distribution Width 12.1 % (11.5-14.5)
[2017-07-29 16:39] LABS: BUN/Creatinine Ratio 10 (6-26); Blood Urea Nitrogen 7 mg/dL (8-26); C-Reactive Protein 48 mg/L (Less than 5); Calcium 7.8 mg/dL (8.6-10.8); Carbon Dioxide 27 mEq/L (19-29); Chloride 98 mEq/L (98-109); Creatine Kinase 78 Units/L (30-200); Glucose 339 mg/dL (70-99); Osmolality,Calculated 283 (280-300); Potassium 3.9 mEq/L (3.5-4.5); Sodium 131 mEq/L (136-145); eGFR For African Americans > 60 (> 60); eGFR For Non-African Americans > 60 (> 60)
[2017-07-29] MEDS: *HR* OxyCODONE Immed Rel 5 MG TABLET PO PRN ×2 (17:40→21:44)
[2017-07-29] MEDS ORDERED: hydrOXYzine pamoate 25 MG CAPSULE PO ONE (20:55)
[2017-07-29 22:50] LABS: Amphetamine Screen,Urine Positive ng/mL (Cutoff=1000); Barbiturate Screen,Urine Negative ng/mL (Cutoff=200); Benzodiazepines Screen,Urine Positive ng/mL (Cutoff=200); Cannabinoid Screen,Urine Positive ng/mL (Cutoff = 50); Cocaine Screen,Urine Negative ng/mL (Cutoff= 300); Opiate Screen,Urine Positive ng/mL (Cutoff=300); Phencyclidine Screen,Urine Negative ng/mL (Cutoff=25)
[2017-07-29] MEDS: clonazePAM 0.5 MG TABLET PO PRN (23:23)
[2017-07-30] MEDS: Nicotine 21 MG PATCH.TD24 TD SCH ×2 (00:37→08:08)
[2017-07-30] MEDS: Vancomycin 1,500 MG in D5% in Water 250 ML IVPB SCH (02:21)
[2017-07-30] MEDS: *HR* OxyCODONE Immed Rel 5 MG TABLET PO PRN ×4 (02:26→14:28)
[2017-07-30] MEDS ORDERED: Ketorolac 30 MG/ML VIAL IVP ONE (04:18)
[2017-07-30] MEDS: Piperacillin/Tazobactam 3.375 GM in D5% in Water 50 ML IVPB SCH ×2 (06:21→14:11)
[2017-07-30] MEDS ORDERED: *HR* HYDROmorphone (PF) 1 MG/ML SYRINGE IVP ONE (08:04)
[2017-07-30] MEDS: Pregabalin 50 MG CAPSULE PO SCH (08:07)
[2017-07-30] MEDS: *HR* Heparin 5,000 UNIT/ML VIAL SQ SCH (08:07)
[2017-07-30] MEDS: clonazePAM 0.5 MG TABLET PO PRN (08:07)
[2017-07-30] MEDS: Insulin LISPRO 300 UNITS/3 ML VIAL SQ SCH ×2 (08:08→11:50)
[2017-07-30] MEDS: Insulin DETEMIR 100 UNIT/ML X5UNITS SQ SCH (09:52)
[2017-07-30] MEDS: 0.9 % Sodium Chloride 1,000 ML IVC SCH (11:49)
--- NOTE | 2017-07-30 12:57 | Infectious Disease Progress No ---
Date of Encounter: 07/30/17 Time of Encounter: 12:55 - Assessment and Plan (1) Sepsis Current Visit: No Status: Acute The patient had two SIRS criteria on admission. Likely secondary to RUE abscess and cellulitis. Improved. Tachycardia has resolved. WBC has normalized. Blood cultures drawn 07/28/17 are NGTD x 2 sets. Qualifiers: Sepsis type: sepsis due to unspecified organism Qualified Code(s): A41.9 - Sepsis, unspecified organism (2) Abscess of right upper arm and forearm Current Visit: Yes Status: Acute Location: Anteromedial aspect of the right elbow. Causative organism unclear. The patient's uncontrolled DM puts him at risk for gram negative infections and drug use puts him at risk for gram positive infections. Wound culture is negative. Likely secondary to recent IV drug use. CT scan of the RUE showed soft tissue edema and cellulitis with an abscess at the anteromedial aspect of the elbow without definitive extension into the muscle. ESR 39, CRP 52. Repeat ESR and CRP yesterday improved (42 and 48, respectively. Status post bedside I & D 07/28/17 in the ER. Cultures are negative. Improved since I & D yesterday by the general surgery team. Repeat wound cultures are pending. Continue wound care per surgery's recommendations. Continue zosyn 3.375 grams IV Q8H. Continue Vancomycin IV. Pharmacy to dose. Goal trough ~15. Pain management per the primary team. Duration of treatment depends on the clinical picture. Monitor renal function and for drug toxicity and dose-adjust antibiotics. (3) Abscess of skin or subcutaneous tissue Current Visit: Yes Status: Acute Locations: Left shoulder, right face, bilateral extremities, chest. Supportive care: warm compresses, pain management, etc. Continue antibiotics as above. Qualifiers: Site of cutaneous abscess: other site Qualified Code(s): L02.818 - Cutaneous abscess of other sites (4) Anxiety Current Visit: No Status: Chronic Reports he has been on Xanax for several years, but has not been able to find a doctor to prescribe it for him and he has been self-medicating with methamphetamine. Psych consulted. Await recommendations. Management per the primary team. (5) Diabetes mellitus Current Visit: No Status: Chronic Uncontrolled. HgbA1C 11.3%. Recommend aggressive glucose monitoring and control to promote wound healing and prevent re-infection. Management per the primary team. Qualifiers: Diabetes mellitus type: type 1 Diabetes mellitus complication status: with unspecified complications Qualified Code(s): E10.8 - Type 1 diabetes mellitus with unspecified complications (6) IVDU (intravenous drug user) Current Visit: No Status: Chronic Reports using IV methamphetamine. Known Hep C positive. HIV negative. (7) Polysubstance dependence including opioid type drug, continuous use Current Visit: No Status: Chronic (8) Hepatitis C Current Visit: Yes Status: Acute Qualifiers: Viral hepatitis chronicity: chronic Hepatic coma status: without hepatic coma Qualified Code(s): B18.2 - Chronic viral hepatitis C - Subjective Interval history: Patient seen and examined. No acute events noted overnight. Patient resting quietly in bed. Continues to complain of anxiety and "having a lot going on in his head." States he is thinking about leaving AMA because he is miserable here and doesn't feel like his anxiety and pain are being treated. Advised him the risks of leaving AMA and not getting adequate antibiotic treatment. Denies fevers, chills, or rigors. Denies chest pain, shortness of breath, or cough. Denies nausea, vomiting, or diarrhea. Denies abdominal pain or urinary complaints. States his appetite is okay. Denies new skin lesions or oral thrush. Infect Dis PN-Objective Data - Labs CBC & Chem 7: 07/29/17 14:15 07/29/17 14:15 Labs: Laboratory Results - last 24 hr 07/29/17 07/29/17 07/29/17 05:47 07:41 12:04 WBC RBC Hgb Hct MCV MCH MCHC RDW Plt Count MPV Immature Gran % Seg Neutrophils % Lymphocytes % Monocytes % Eosinophils % Basophils % Neutrophils # Lymphocytes # Monocytes # Eosinophils # Basophils # ESR Sodium Potassium Chloride Carbon Dioxide BUN Creatinine Est GFR ( Amer) Est GFR (Non-Af Amer) BUN/Creatinine Ratio Glucose POC Glucose 139 H 99 H 153 H Calculated Osmolality Calcium Creatine Kinase C-Reactive Protein Urine Opiates Screen Ur Barbiturates Screen Ur Phencyclidine Scrn Ur Amphetamines Screen U Benzodiazepines Scrn Urine Cocaine Screen U Marijuana (THC) Screen HIV Ag/Ab Combo Qual 07/29/17 07/29/17 07/29/17 14:15 14:15 14:15 WBC 6.1 D RBC 4.14 L Hgb 12.2 L D Hct 35.2 L MCV 85.0 MCH 29.5 MCHC 34.7 RDW 12.1 Plt Count 164 MPV 11.7 Immature Gran % 0.3 Seg Neutrophils % 56.0 Lymphocytes % 31.8 Monocytes % 9.1 Eosinophils % 2.3 Basophils % 0.5 Neutrophils # 3.4 Lymphocytes # 1.9 Monocytes # 0.6 Eosinophils # 0.1 Basophils # 0.0 ESR 24 H Sodium Potassium Chloride Carbon Dioxide BUN Creatinine Est GFR ( Amer) Est GFR (Non-Af Amer) BUN/Creatinine Ratio Glucose POC Glucose Calculated Osmolality Calcium Creatine Kinase C-Reactive Protein Urine Opiates Screen Positive H Ur Barbiturates Screen Negative Ur Phencyclidine Scrn Negative Ur Amphetamines Screen Positive H U Benzodiazepines Scrn Positive H Urine Cocaine Screen Negative U Marijuana (THC) Screen Positive H HIV Ag/Ab Combo Qual 07/29/17 07/29/17 07/29/17 14:15 14:15 17:35 WBC RBC Hgb Hct MCV MCH MCHC RDW Plt Count MPV Immature Gran % Seg Neutrophils % Lymphocytes % Monocytes % Eosinophils % Basophils % Neutrophils # Lymphocytes # Monocytes # Eosinophils # Basophils # ESR Sodium 131 L Potassium 3.9 Chloride 98 Carbon Dioxide 27 BUN 7 L Creatinine 0.67 L Est GFR ( Amer) > 60 Est GFR (Non-Af Amer) > 60 BUN/Creatinine Ratio 10 Glucose 339 H POC Glucose 330 H Calculated Osmolality 283 Calcium 7.8 L Creatine Kinase 78 C-Reactive Protein 48 H Urine Opiates Screen Ur Barbiturates Screen Ur Phencyclidine Scrn Ur Amphetamines Screen U Benzodiazepines Scrn Urine Cocaine Screen U Marijuana (THC) Screen HIV Ag/Ab Combo Qual Nonreactive 07/29/17 07/30/17 07/30/17 20:08 06:50 11:41 WBC RBC Hgb Hct MCV MCH MCHC RDW Plt Count MPV Immature Gran % Seg Neutrophils % Lymphocytes % Monocytes % Eosinophils % Basophils % Neutrophils # Lymphocytes # Monocytes # Eosinophils # Basophils # ESR Sodium Potassium Chloride Carbon Dioxide BUN Creatinine Est GFR ( Amer) Est GFR (Non-Af Amer) BUN/Creatinine Ratio Glucose POC Glucose 203 H 264 H 284 H Calculated Osmolality Calcium Creatine Kinase C-Reactive Protein Urine Opiates Screen Ur Barbiturates Screen Ur Phencyclidine Scrn Ur Amphetamines Screen U Benzodiazepines Scrn Urine Cocaine Screen U Marijuana (THC) Screen HIV Ag/Ab Combo Qual Cultures: Cultures 07/29/17 13:00 Wound Culture - Preliminary Right Arm No growth. 07/29/17 13:00 Gram Stain - Final Right Arm Serology 07/29/17 Range/Units 14:15 HIV Ag/Ab Combo Qual Nonreactive (Nonreactive) Exam - Constitutional Vitals: Temp Pulse Resp BP Pulse Ox 98.7 F 76 16 154/84 100 07/30/17 10:53 07/30/17 10:53 07/30/17 10:53 07/30/17 10:53 07/30/17 10:53 General appearance: average body habitus, cooperative, no acute distress - Head Head exam: Present: atraumatic, normal inspection, normocephalic - Eye Eye exam: Present: EOMI, normal appearance, PERRL Pupils: Present: normal accommodation - ENT ENT exam: Present: mucous membranes moist - Neck Neck exam: Present: normal inspection - Respiratory Respiratory exam: Present: CTAB. Absent: rales, respiratory distress, rhonchi, wheezes - Cardiovascular Cardiovascular exam: Present: RRR, +S1, +S2 - GI/Abdominal GI/Abdominal exam: Present: normal bowel sounds, soft. Absent: distended, tenderness - Extremities Exam Extremities exam: Present: joint swelling (right elbow), tenderness (right forearm/elbow). Absent: pedal edema Additional comments: RUE edematous, but improved since yesterday. Remains tender to touch. Dressing over the upper forearm and elbow is C/D/I. ROM of the elbow improved. - Neurological Exam Neurological exam: Present: alert, oriented X3, no focal deficits - Psychiatric Psychiatric exam: Present: anxious - Skin Skin exam: Present: dry, intact, normal color, warm Additional comments: Multiple scabbed lesions noted to the right nose/face, back, shoulder, and chest. No fluctuance or drainage noted. - Additional findings Additional findings: EPIV noted to the LUE with transparent dressing C/D/I. Consult Discharge Plan - Plan Additional Instructions: Wound care- Cleanse right forearm with soap and water, packed with 1/4 inch iodoform gauze, cover with 4 x 4 gauze, wrapped with Kerlix and tape to secure daily May shower Referrals: [place],Beverly A, ICU CLERK [Advanced Practice Nurse] - 11/16/17 9:45 am (surgery follow-up; wound check) NONE,PCP [Primary Care Provider] -
[2017-07-30] MEDS ORDERED: *HR* LORazepam 2 MG/ML VIAL IVP ONE (13:38)
[2017-07-30 14:57] VITALS: BP 157/81
[2017-07-30] MEDS ORDERED: Aminoglycoside Consult 1 EACH MC ONE (16:09)
--- NOTE | 2017-07-30 17:00 | Discharge Summary ---
Date of Encounter: 07/30/17 Time of Encounter: 16:56 - Discharge Diagnosis (1) Cellulitis Priority: Primary Status: Acute Comments: Mr. Beckman is a 31 year old male 07/28/2017 with complaints of right arm pain and swelling. He was found to have a right arm abscess and elevated blood sugar. He was admitted for further workup and treatment. The patient left AMA on 2016. 1. Cellulitis with abscess: To right upper extremity. Secondary to IV drug use. Right upper extremity CT with fluid collection to right elbow without extension into muscle. WBC 14K, lactic acid normal. ESR 39, CRP 52. S/p I&D in ER and repeat I&D on 07/29/17. Continue IV Vanco, Zosyn. Cultures pending, narrow ATB as culture finalizes. Infectious disease consulted. Patient left AMA on 07/30/2017 2. Sepsis: HR 106, WBC 14K. secondary to right arm abscess. Received IV ATB and fluids in the ED. Hemodynamically stable. Plan as noted above. Continue IV fluids, IV ATB. Patient left AMA on 07/30/2017 3. Type 1 diabetes: per hx. Blood sugar greater than 500 on arrival. AG 11, beta hydroxybutyrate positive. Likely secondary to medication noncompliance. Received 10 units subcutaneous in the ER improvement in blood sugar. No insulin drip has no elevated anion gap. Continue home long-acting insulin. SSI. Monitor blood sugar and titrate PRN. Patient left AMA on 07/30/2017 4. Pseudohyponatremia: Na 129; in the setting of hyperglycemia. Corrected sodium 139. Neurologically intact. Expect sodium will normalize as glucose improves. Monitor repeat BMP. Patient left AMA on 07/30/2017 5. Benzo withdrawal: Possible. Patient reports taking Xanax on a daily basis. Last ingested day of presentation. [place] reviewed 07/28/17 and he does not have active Rx for Xanax. He is at risk for seizures if he has been taking Xanax and it's abruptly stopped. Received one-time dose Xanax in ER. UDS pending. Psych consulted. Patient left AMA on 07/30/2017 6. IV drug abuse: History of polysubstance abuse; currently reports using IV methamphetamines and Xanax. Appears intoxicated/impaired on exam. Last injected methamphetamine day of presentation. He was hypertensive and tachycardic on arrival. BP and heart rate now improved. Monitor for agitation/ aggression. Symptomatic care at this time. UDS positive for opiates, amphetamines, benzos and THC. Patient left AMA on 07/30/2017 Qualifiers: Site of cellulitis: extremity Site of cellulitis of extremity: upper extremity Laterality: right Qualified Code(s): L03.113 - Cellulitis of right upper limb (2) IVDU (intravenous drug user) Priority: Primary Status: Chronic (3) Type 1 diabetes mellitus maturity onset Priority: Primary Status: Chronic - Discharge Medications Home Medications: Insulin ASPART [Novolog] 10 - 15 unit SQ TID 05/08/16 [History] Insulin Glargine [Lantus] 25 unit SQ BID 05/08/16 [History] Pregabalin [Lyrica] 200 mg PO BID 07/28/17 [History] Allergies/Adverse Reactions: 3 Allergy/AdvReac Type Severity Reaction Status Date / Time tramadol AdvReac Vomiting Verified 07/28/17 06:53 Procedures/tests Complete & Pending: Procedures Performed prior 72 hours Category Date Time Status Venous Doppler [EV venous imaging UE RT] Stat Y 07/29/17 18:06 Completed Date of admission: 07/28/17 07:59 Primary care physician: PCP NONE Consults: 07/28/17 10:25 Consult to Infectious Diseases [CONS] Routine Consulting Provider: Infectious [facility] [place] Reason for Consult: IVDU with right arm abscess Call Completed: Yes 07/29/17 10:07 Consult to Surgery [CONS] Routine Consulting Provider: Joby Romero Reason for Consult: right forearm abscess Call Completed: Yes 07/29/17 13:21 Consult to Psychiatry [CONS] Routine Consulting Provider: Psychiatry [place] Reason for Consult: Benzo abuse with possible w/d, polysubstance abuse, anxiety Call Completed: Yes 07/29/17 13:45 Consult to Invasive Line Access Team [CONS] Routine Reason for Consult: poor access Line Type: EPIV Discharging clinician: Nancy Cohen Anticipated date of discharge: 07/30/17 - Patient Status Disposition: Left Against Medical Advice Condition: Good Functional capacity at discharge: independent ambulation Overall status at discharge: patient is progressing back to baseline - Discharge Instructions Follow Up With: [place],Beverly A, TRAVEL DIRECTOR [Advanced Practice Nurse] - 08/06/17 9:45 am (surgery follow-up; wound check) NONE,PCP [Primary Care Provider] - Additional Instructions: Wound care- Cleanse right forearm with soap and water, packed with 1/4 inch iodoform gauze, cover with 4 x 4 gauze, wrapped with Kerlix and tape to secure daily May shower Interval History: Notified by nursing staff the patient left AGAINST MEDICAL ADVICE Hospital course: Mr. Beckman is a 31 year old male - Time Spent with Patient Total time spent providing and/or coordinating discharge services: - Constitutional Vitals: Temp Pulse Resp BP Pulse Ox 97.5 F L 98 19 157/81 100 07/30/17 14:57 07/30/17 14:57 07/30/17 14:57 07/30/17 14:57 07/30/17 14:57 General appearance: Present: disheveled, A&O X 3
[2017-07-30 17:07] LABS: Amphetamines NEGATIVE ng/mL (Cutoff 30); Barbiturates NEGATIVE ng/mL (Cutoff 75); Cocaine NEGATIVE ng/mL (Cutoff 30); Methadone NEGATIVE ng/mL (Cutoff 40); Phencyclidine NEGATIVE ng/mL (Cutoff 15)
[2017-07-30] MEDS ORDERED: Vancomycin 1,500 MG in D5% in Water 250 ML IVPB SCH (19:00)
[2017-07-31 07:58] LABS: Benzodiazepines POSITIVE ng/mL (Cutoff 75); Methamphetamines POSITIVE ng/mL (Cutoff 30); Opiates POSITIVE ng/mL (Cutoff 30)
[2017-08-01 22:05] LABS: 7-aminoclonazepam Conf <5 ng/mL; Alpha-hydroxyalprazolam Conf <5 ng/mL; Chlordiazepoxide Conf <20 ng/mL; Clonazepam Conf <5 ng/mL; Lorazepam Confirmation <20 ng/mL; Midazolam Confirmation <20 ng/mL; Nordiazepam Confirmation <20 ng/mL; Oxazepam Confirmation <20 ng/mL; Temazepam Confirmation <20 ng/mL
[2017-08-02 00:46] LABS: Methylenedioxyamphetamine <20 ng/mL; Methylenedioxymethamphetamine <20 ng/mL
[2017-08-03 08:19] LABS: Alprazolam Confirmation 14 ng/mL; Diazepam Confirmation 23 ng/mL
[2017-08-03 09:24] LABS: Methamphetamine Confirmation 35 ng/mL; Methylenedioxyethylamphetamine <20 ng/mL
[2017-08-03 09:25] LABS: 6_Acetylmorphine Confirmation <2 ng/mL; Hydrocodone Confirmation 67 ng/mL; Oxymorphone Confirmation <2 ng/mL
== END 2017-07-30 16:10 | disposition left against medical advice (07) | DRG 720 ==
LOC: 3ANU 02:51 → EMEROO 02:51 → 3ANU 11:15 → 2NNU 14:48 → 3BNU 17:27
PROVIDERS: ADMIT Internal Medicine; ATTEND Internal Medicine